=== PATIENT | female | born 1960 | race Two or more races ===

== ENCOUNTER 2024-07-14 15:45 | Outpatient (RCR) | payer OTHER, SELFPAY | END 2024-11-11 23:59 | disposition home or self-care (01) | PROVIDERS: Visit Provider Family Medicine | DX: M76.61 Achilles tendinitis, right leg (principal); M25.552 Pain in left hip; M25.551 Pain in right hip; Z51.89 Encounter for other specified aftercare | CPT/HCPCS: 97110; 97140; 97162; 97530 ==